=== PATIENT | female | born 1980 | race Two or more races ===

== ENCOUNTER 2022-11-29 07:36 | Outpatient (CLI) | payer OTHER | END 2022-11-29 07:49 | disposition home or self-care (01) | LOC: SONOGRAMA 07:36 | PROVIDERS: ATTEND Otolaryngology | DX: R22.1 Localized swelling, mass and lump, neck (principal) ==

== ENCOUNTER 2023-05-30 07:04 | Outpatient (CLI) | payer OTHER | END 2023-05-30 07:35 | disposition home or self-care (01) | LOC: TOM 07:04 | PROVIDERS: ATTEND Otolaryngology | DX: C01 Malignant neoplasm of base of tongue (principal) ==